=== PATIENT | female | born 1995 | race African-American/Black ===

== ENCOUNTER 2024-06-19 21:52 | Emergency (ER) | payer SELFPAY ==
[~2024-06-19] VITALS: Ht 170.2 cm; Wt 109.5 kg
[~2024-06-19 21:52] MED LIST: NOCURR
[2024-06-19 21:55] VITALS: BP 129/84; PULSE 97; RESP 18; TEMP 98; O2SAT 100
[2024-06-20] MEDS: ACETAMINOPHEN 500 MG TABLET PO ONE (00:21)
== END 2024-06-20 00:48 | disposition home or self-care (01) ==
LOC: EMS 21:52 → EDUNIT# 21:52 → EMS 06-20 00:48
DX: S09.90XA Unspecified injury of head, initial encounter (principal); F17.210 Nicotine dependence, cigarettes, uncomplicated; F14.90 Cocaine use, unspecified, uncomplicated; Z91.013 Allergy to seafood; Y08.89XA Assault by other specified means, initial encounter; Y93.89 Activity, other specified; Y92.89 Other specified places as the place of occurrence of the external cause; Y99.8 Other external cause status
CPT/HCPCS: 99283